=== PATIENT | male | born 1965 | race Caucasian/White ===

== ENCOUNTER 2016-08-15 18:45 | Inpatient (IN) | payer SELFPAY ==
[2016-08-15] MEDS ORDERED: NORMAL SALINE 1000 ML 1,000 ML IV ONE ×2 (21:14→22:00)
[2016-08-15 21:55] LABS: HEMOGLOBIN 16.2 g/dL (13.5-17.0); HGB HCT DIFFERENCE -3.4; MEAN CORPUSCULAR HEMOGLOBIN 32.3 pg (27.0-33.4); MEAN CORPUSCULAR HGB CONC 31.1 g/dL (32.0-36.0); MEAN CORPUSCULAR VOLUME 104 fl (80-97); RED BLOOD COUNT 5.02 10^6/uL (4.35-5.55); RED CELL DISTRIBUTION WIDTH 13.3 % (11.5-14.0)
[2016-08-15 22:19] LABS: BAND NEUTROPHILS % (MANUAL) 3 % (3-5); BASOPHILS % (MANUAL) 0 % (0-2); EOSINOPHILS % (MANUAL) 0 % (0-6); LYMPHOCYTES % (MANUAL) 1 % (13-45); TOTAL CELLS COUNTED 100
[2016-08-15 22:21] LABS: PLATELET CLUMPS PRESENT; TOXIC GRANULATION SLIGHT; TOXIC VACUOLATION PRESENT
[2016-08-15 22:24] LABS: WHITE BLOOD COUNT 34.6 10^3/uL (4.0-10.5)
--- NOTE | 2016-08-15 22:42 | ER Document Report ---
ED General - General Chief Complaint: Breathing Difficulty Stated Complaint: DIFFICULTY BREATHING Mode of Arrival: Ambulatory Information source: Patient Notes: 51-year-old male with history of insulin-dependent type II diabetes presents to the emergency department complaining of shortness of breath, nausea and vomiting. Reports has been out of his insulin for a week and feels like his blood sugar is very high. States has not checked it at home. Reports recently moved to local area 3 weeks ago and has not established care with a new primary care provider. Denies fever, chest pain, blood in emesis or stool. TRAVEL OUTSIDE OF THE [place] IN LAST 30 DAYS: No - HPI Onset/Duration: Persistent, Worse Associated symptoms: Nausea, Vomiting, Shortness of breath Similar symptoms previously: Yes Recently seen / treated by doctor: No - Related Data Allergies/Adverse Reactions: No Known Allergies Allergy (Verified 08/15/16 18:47) Past Medical History - General Information source: Patient - Social History Smoking Status: Never Smoker Frequency of alcohol use: None Drug Abuse: None Lives with: Family Family History: Reviewed & Not Pertinent Patient has suicidal ideation: No Patient has homicidal ideation: No - Past Medical History Cardiac Medical History: Reports: Hx Hypertension Endocrine Medical History: Reports: Hx Diabetes Mellitus Type 2 Renal/ Medical History: Denies: Hx Peritoneal Dialysis Surgical Hx: Negative - Immunizations Hx Diphtheria, Pertussis, Tetanus Vaccination: Yes Review of Systems - Review of Systems Constitutional: See HPI, Weakness EENT: No symptoms reported Cardiovascular: No symptoms reported Respiratory: See HPI Gastrointestinal: See HPI Genitourinary: No symptoms reported Male Genitourinary: No symptoms reported Musculoskeletal: No symptoms reported Skin: No symptoms reported Hematologic/Lymphatic: No symptoms reported Neurological/Psychological: No symptoms reported -: Yes All other systems reviewed and negative Physical Exam - Vital signs Vitals: Pulse Resp BP Pulse Ox 103 H 20 120/72 100 08/15/16 18:49 08/15/16 18:49 08/15/16 18:49 08/15/16 18:49 - General General appearance: Alert, Anxious In distress: Mild - HEENT Head: Normocephalic, Atraumatic Eyes: Normal Pupils: PERRL Mucous membranes: Dry - Respiratory Respiratory status: No respiratory distress, Tachypnea Chest status: Nontender Breath sounds: Normal - CTAB Chest palpation: Normal - Cardiovascular Rhythm: Regular Heart sounds: Normal auscultation Murmur: No Pulses: Normal: Radial Normal capillary refill: Yes - Abdominal Inspection: Normal Distension: No distension Bowel sounds: Normal Tenderness: Nontender Organomegaly: No organomegaly - Back Back: Normal, Nontender - Extremities General upper extremity: Normal inspection, Nontender, Normal color, Normal ROM , Normal strength, Normal temperature. No: Edema General lower extremity: Normal inspection, Nontender, Normal color, Normal ROM , Normal strength, Normal temperature, Normal weight bearing. No: Edema - Neurological Neuro grossly intact: Yes Cognition: Normal Orientation: AAOx4 [place] Coma Scale Eye Opening: Spontaneous Ayana Coma Scale Verbal: Oriented [place] Coma Scale Motor: Obeys Commands Ayana Coma Scale Total: 15 Speech: Normal Motor strength normal: LUE, RUE, LLE, RLE Sensory: Normal - Skin Skin Temperature: Warm Skin Moisture: Dry Skin Color: Hazel Course - Re-evaluation Re-evalutation: 08/15/16 23:45 Pt receiving 2 L NS bolus, IV insulin, calcium gluconate, and nebulized albuterol. Pt presentation and findings discussed with hospitalist Dr. Marti who agrees to assume care and admit to ICU. Findings and plan discussed with patient and who verbalized understanding and agree with plan. ED physician Dr. Olea consulted during evaluation and treatment per [facility] guidelines. - Vital Signs Vital signs: Temp Pulse Resp BP Pulse Ox 103 H 26 H 138/84 H 94 08/15/16 18:49 08/15/16 21:43 08/15/16 21:43 08/15/16 21:35 - Laboratory Result Diagrams: 08/15/16 21:29 08/15/16 22:23 Laboratory results interpreted by me: 08/15/16 08/15/16 08/15/16 21:29 22:23 23:05 WBC 34.6 H* Hct 52.0 H MCV 104 H MCHC 31.1 L Plt Count 461 H Seg Neuts % (Manual) 92 H Lymphocytes % (Manual) 1 L Abs Neuts (Manual) 32.9 H Abs Lymphs (Manual) 0.3 L Carbonic Acid ABG pH ABG pCO2 ABG HCO3 ABG Total CO2 ABG O2 Saturation Sodium 130.2 L Potassium 7.9 H* Chloride 90 L Carbon Dioxide < 5 L* BUN 26 H Creatinine 2.07 H Est GFR ( Amer) 41 L Est GFR (Non-Af Amer) 34 L Glucose 881 H* Alkaline Phosphatase 139 H Urine Protein 30 H Urine Glucose (UA) >=500 H Urine Ketones 80 H Urine Blood SMALL H 08/15/16 23:54 WBC Hct MCV MCHC Plt Count Seg Neuts % (Manual) Lymphocytes % (Manual) Abs Neuts (Manual) Abs Lymphs (Manual) Carbonic Acid 0.43 L ABG pH 6.88 L* ABG pCO2 14.3 L* ABG HCO3 2.6 L ABG Total CO2 3.1 L ABG O2 Saturation 89.2 L Sodium Potassium Chloride Carbon Dioxide BUN Creatinine Est GFR ( Amer) Est GFR (Non-Af Amer) Glucose Alkaline Phosphatase Urine Protein Urine Glucose (UA) Urine Ketones Urine Blood - Diagnostic Test Radiology reviewed: Image reviewed, Reports reviewed - EKG Interpretation by Me EKG shows normal: Sinus rhythm, Intervals, QRS Complexes, ST-T Waves - peaked T waves Rate: Tachycardia When compared to previous EKG there are: Previous EKG unavailable Critical Care Note - Critical Care Note Total time excluding time spent on procedures (mins): 30 Discharge - Discharge Clinical Impression: Hyperglycemia DKA (diabetic ketoacidosis) Qualifiers: Diabetes mellitus type: type 2 Diabetes mellitus complication detail: without coma Qualified Code(s): E13.10 - Other specified diabetes mellitus with ketoacidosis without coma Condition: Stable Disposition: ADMITTED INPATIENT Admitting Provider: Hospitalist - Dr. Marti Unit Admitted: ICU
[2016-08-15 22:51] LABS: ALANINE AMINOTRANSFERASE 21 U/L (21-72); ALBUMIN 4.7 g/dL (3.5-5.0); ALKALINE PHOSPHATASE 139 U/L (38-126); ASPARTATE AMINO TRANSFERASE 17 U/L (17-59); BILIRUBIN,DIRECT 0.3 mg/dL (0.0-0.4); BILIRUBIN,TOTAL 0.5 mg/dL (0.2-1.3); BLOOD UREA NITROGEN 26 mg/dL (7-20); CALCIUM 9.5 mg/dL (8.4-10.2); CREATININE RESULT 2.07 mg/dL (0.52-1.25); TOTAL PROTEIN 7.1 g/dL (6.3-8.2)
[2016-08-15 23:24] LABS: CHLORIDE 90 mmol/L (98-107); SODIUM 130.2 mmol/L (137-145)
[2016-08-15 23:26] LABS: GLUCOSE 881 mg/dL (75-110); POTASSIUM 7.9 mmol/L (3.6-5.0)
[2016-08-15 23:28] LABS: CARBON DIOXIDE < 5 mmol/L (22-30)
[2016-08-15] MEDS ORDERED: INSULIN REG, HUMAN 100 UNIT/ML 3 ML VIAL (PYX) IV ONE (23:30)
[2016-08-15] MEDS ORDERED: CALCIUM GLUCONATE 1000 MG/10 ML INJ IV ONE (23:30)
[2016-08-15] MEDS ORDERED: ALBUTEROL SULFATE 0.083% NEB 2.5 MG/3 ML AMPUL NEB ONE (23:31)
[2016-08-15 23:32] LABS: APPEARANCE,URINE SLIGHTLY-CLOUDY; BILIRUBIN,URINE NEGATIVE (NEGATIVE); GLUCOSE, URINE >=500 mg/dL (NEGATIVE); KETONES,URINE 80 mg/dL (NEGATIVE); LEUKOCYTE ESTERASE,URINE NEGATIVE (NEGATIVE); NITRITE,URINE NEGATIVE (NEGATIVE); PROTEIN,URINE 30 mg/dL (NEGATIVE); URINE SPECIFIC GRAVITY 1.016; UROBILINOGEN,URINE NEGATIVE mg/dL (<2.0)
[2016-08-15] MEDS ORDERED: DEXTROSE 40% GEL 15 GM TUBE PO PRN ×4 (23:32→23:47)
[2016-08-15] MEDS ORDERED: NORMAL SALINE 100 ML with INSULIN REGULAR, HUMAN 100 UNIT IV PRN ×2 (23:32)
[2016-08-15] MEDS ORDERED: GLUCAGON,HUMAN RECOMB 1 MG INJ IM PRN ×2 (23:32→23:47)
[2016-08-15] MEDS ORDERED: DEXTROSE 50%-WATER 25 GM/50 ML DISP.SYRIN IV PRN ×4 (23:32→23:47)
[2016-08-15] MEDS ORDERED: ACETAMINOPHEN 325 MG TABLET PO PRN (23:47)
[2016-08-16 00:05] LABS: ARTERIAL BLOOD BASE EXCESS -29.4 mmol/L; ARTERIAL BLOOD O2 SATURATION 89.2 % (94-98)
--- NOTE | 2016-08-16 00:10 | EKG REPORT ---
SEVERITY:- OTHERWISE NORMAL ECG - SINUS TACHYCARDIA : Confirmed by: Jane Redmond 16-Aug-2016 00:09:38
[2016-08-16 00:23] LABS: PHOSPHORUS 12.9 mg/dL (2.5-4.5)
[2016-08-16 01:05] LABS: BLOOD UREA NITROGEN 27 mg/dL (7-20); CALCIUM 9.1 mg/dL (8.4-10.2); CHLORIDE 95 mmol/L (98-107); CREATINE KINASE 46 U/L (55-170); CREATININE RESULT 1.91 mg/dL (0.52-1.25); SODIUM 135.4 mmol/L (137-145)
[2016-08-16 01:14] LABS: URINE BARBITURATES SCREEN NEGATIVE; URINE METHADONE SCREEN NEGATIVE; URINE OPIATES LOW NEGATIVE; URINE PHENCYCLIDINE SCREEN NEGATIVE
[2016-08-16 01:32] LABS: CREATINE KINASE MB 0.67 ng/mL (<4.55)
[2016-08-16 01:34] LABS: TROPONIN I < 0.012 ng/mL
[2016-08-16 01:47] LABS: CARBON DIOXIDE < 5 mmol/L (22-30); GLUCOSE 839 mg/dL (75-110)
[2016-08-16] MEDS: IPRATROPIUM/ALBUTEROL 0.5-2.5 MG/3 ML AMPUL NEB SCH ×4 (01:49→19:55)
[2016-08-16] MEDS ORDERED: DEXTROSE 5%-WATER 1000 ML 1,000 ML with SODIUM BICARBONATE 150 MEQ IV ONE ×2 (03:49)
[2016-08-16] MEDS ORDERED: SODIUM BICARBONATE 8.4% INJ 50 MEQ/50 ML DISP.SYRIN ONE (04:05)
[2016-08-16] MEDS: NORMAL SALINE 1000 ML 1,000 ML IV SCH ×2 (04:23→04:24)
--- NOTE | 2016-08-16 04:56 | PDOC H&P ---
History of Present Illness Admission Date/PCP: 08/15/16 23:47 Patient complains of: Abdominal pain nausea vomiting History of Present Illness: ANASTASIIA SAMANO is a 51 year old male with a past medical history of insulin- dependent diabetes who is recently relocated from [place] and been without insulin for 2 weeks. He is noted excessive thirst polyuria polydipsia uncontrolled blood sugars developing abdominal pain nausea vomiting prompting to seek evaluation emergency room where his found to have severe metabolic acidosis of 6.8, undetectable bicarbonate in a potassium of 8 with peaked T waves. He started on IV insulin, saline, calcium gluconate and symptomatic measures referred to the hospitalist for admission. Incredibly the patient is still awake denying chest pain or palpitations. Past Medical History Cardiac Medical History: Reports: Hypertension Endocrine Medical History: Reports: Diabetes Mellitus Type 2 Social History Information Source: Relative Lives with: Family Smoking Status: Former Smoker Frequency of Alcohol Use: Social Hx Recreational Drug Use: No Drugs: None Hx Prescription Drug Abuse: No - Advance Directive Resuscitation Status: Full Code Family History Family History: None Parental Family History Reviewed: Yes Children Family History Reviewed: Yes Sibling(s) Family History Reviewed.: Yes Medication/Allergy Allergies/Adverse Reactions: No Known Allergies Allergy (Verified 08/15/16 18:47) Review of Systems Constitutional: PRESENT: anorexia, fatigue, headache(s), weakness, weight loss. ABSENT: fever(s), night sweats Eyes: ABSENT: visual disturbances Ears: ABSENT: hearing changes Cardiovascular: ABSENT: chest pain, dyspnea on exertion, edema, orthropnea, palpitations Respiratory: PRESENT: other - Tachypnea. ABSENT: cough, hemoptysis Gastrointestinal: PRESENT: abdominal pain, nausea, vomiting Genitourinary: ABSENT: dysuria, hematuria Musculoskeletal: ABSENT: joint swelling Integumentary: ABSENT: rash, wounds Neurological: ABSENT: abnormal gait, abnormal speech, confusion, dizziness, focal weakness, syncope Psychiatric: ABSENT: anxiety, depression, homidical ideation, suicidal ideation Endocrine: PRESENT: polydipsia, polyphagia, polyuria Hematologic/Lymphatic: ABSENT: easy bleeding, easy bruising Physical Exam Vital Signs: Temp Pulse Resp BP Pulse Ox 97.7 F 114 H 25 H 127/77 H 100 08/16/16 04:24 08/16/16 04:00 08/16/16 04:24 08/16/16 04:24 08/16/16 04:00 Intake & Output 08/14/16 08/15/16 08/16/16 11:59 11:59 11:59 Output Total 1000 Balance -1000 Weight 56.7 kg General appearance: PRESENT: cooperative, severe distress Head exam: PRESENT: atraumatic, normocephalic Eye exam: PRESENT: conjunctiva pink, EOMI, PERRLA. ABSENT: scleral icterus Ear exam: PRESENT: normal external ear exam Mouth exam: PRESENT: dry mucosa. ABSENT: laceration Neck exam: ABSENT: carotid bruit, JVD, lymphadenopathy, thyromegaly Respiratory exam: PRESENT: accessory muscle use, clear to auscultation rea, retraction, symmetrical, tachypnea. ABSENT: rhonchi, wheezes Cardiovascular exam: PRESENT: gallop, RRR, +S1, +S2, tachycardia. ABSENT: systolic murmur Pulses: PRESENT: normal dorsalis pedis pul Vascular exam: PRESENT: normal capillary refill GI/Abdominal exam: PRESENT: normal bowel sounds, soft, tenderness. ABSENT: distended, guarding, mass, organolmegaly, rebound Rectal exam: PRESENT: deferred Extremities exam: PRESENT: full ROM, other - Livedo reticularis. ABSENT: calf tenderness, clubbing, pedal edema Neurological exam: PRESENT: alert, awake, oriented to person, oriented to place , oriented to time, oriented to situation, CN II-XII grossly intact. ABSENT: motor sensory deficit Psychiatric exam: PRESENT: appropriate affect, normal mood. ABSENT: homicidal ideation, suicidal ideation Skin exam: PRESENT: other - [place]ivedo reticularis Results Laboratory Results: 08/15/16 08/16/16 08/16/16 23:54 00:13 02:04 Carbonic Acid 0.43 L HCO3/H2CO3 Ratio 6:1 ABG pH 6.88 L* ABG pCO2 14.3 L* ABG pO2 90.6 ABG HCO3 2.6 L ABG O2 Saturation 89.2 L ABG Base Excess -29.4 FiO2 ROOMAIR Sodium 135.4 L Potassium 7.0 H* Chloride 95 L Carbon Dioxide < 5 L* Anion Gap CERTIFIED MEDICAL DOSIMETRIST BUN 27 H Creatinine 1.91 H Est GFR ( Amer) 45 L Est GFR (Non-Af Amer) 37 L Glucose 839 H* 762 H* Calcium 9.1 08/16/16 08/16/16 00:13 00:13 Creatine Kinase 46 L CK-MB (CK-2) 0.67 Troponin I < 0.012 Impressions: Chest X-Ray 08/15/16 21:16 IMPRESSION: NO ACUTE RADIOGRAPHIC FINDING IN THE CHEST. Assessment & Plan - Diagnosis (1) DKA (diabetic ketoacidosis) Qualifiers: Diabetes mellitus type: type 2 Diabetes mellitus complication detail: without coma Qualified Code(s): E13.10 - Other specified diabetes mellitus with ketoacidosis without coma Is this a current diagnosis for this admission?: YesPlan: Patient admits recent noncompliance given his severe acidosis with a pH of 6.8 a he is transferred to the ICU for aggressive IV insulin, saline, bicarbonate and electrolyte repletion with serial chemistries as needed, diabetic education (2) Hyperkalemia Is this a current diagnosis for this admission?: YesPlan: Patient is received calcium gluconate, albuterol Atrovent, insulin IV fluid I' ll reevaluate chemistry in anticipation of a precipitous drop of potassium with correction of acidosis (3) Nausea & vomiting Is this a current diagnosis for this admission?: YesPlan: Correcting the underlying cause and symptomatic management as needed - Time Time Spent: 50 to 70 Minutes - Inpatient Certification Medical Necessity: Need Close Monitoring Due to Risk of Patient Decompensation
[2016-08-16 05:09] LABS: BLOOD UREA NITROGEN 29 mg/dL (7-20); CALCIUM 8.9 mg/dL (8.4-10.2); CREATININE RESULT 1.91 mg/dL (0.52-1.25); MAGNESIUM 2.5 mg/dL (1.6-2.3)
[2016-08-16 05:23] LABS: CHLORIDE 107 mmol/L (98-107); SODIUM 146.1 mmol/L (137-145)
[2016-08-16 05:24] LABS: POTASSIUM 5.3 mmol/L (3.6-5.0)
[2016-08-16 05:25] LABS: CARBON DIOXIDE < 5 mmol/L (22-30); GLUCOSE 597 mg/dL (75-110)
[2016-08-16] MEDS: HEPARIN SOD (PORCINE) 5,000 UNIT/ML 1 ML SYRINGE SUBCUT SCH ×3 (05:33→22:03)
[2016-08-16 06:14] LABS: ARTERIAL BLOOD BASE EXCESS -20.6 mmol/L; ARTERIAL BLOOD O2 SATURATION 95.3 % (94-98)
[2016-08-16] MEDS ORDERED: NORMAL SALINE 1000 ML 1,000 ML IV PRN (07:18)
[2016-08-16 07:19] LABS: CREATINE KINASE MB 1.42 ng/mL (<4.55)
[2016-08-16 07:26] LABS: TROPONIN I < 0.012 ng/mL
[2016-08-16 08:05] LABS: HEMATOCRIT 42.8 % (37.9-51.0); HEMOGLOBIN 14.5 g/dL (13.5-17.0); HGB HCT DIFFERENCE 0.7; MEAN CORPUSCULAR HEMOGLOBIN 32.3 pg (27.0-33.4)
[2016-08-16] MEDS ORDERED: ALBUTEROL SULFATE 0.083% NEB 2.5 MG/3 ML AMPUL NEB PRN (08:21)
[2016-08-16 08:23] LABS: BAND NEUTROPHILS % (MANUAL) 2 % (3-5); BASOPHILS % (MANUAL) 0 % (0-2); EOSINOPHILS % (MANUAL) 0 % (0-6); LYMPHOCYTES % (MANUAL) 1 % (13-45); TOTAL CELLS COUNTED 100
[2016-08-16 08:25] LABS: HYPOCHROMASIA SLIGHT
[2016-08-16 08:26] LABS: MEAN CORPUSCULAR VOLUME 95 fl (80-97)
[2016-08-16] MEDS ORDERED: NORMAL SALINE 1000 ML 2,000 ML IV ONE (08:26)
[2016-08-16 08:27] LABS: WHITE BLOOD COUNT 32.9 10^3/uL (4.0-10.5)
[2016-08-16 08:36] LABS: BLOOD UREA NITROGEN 27 mg/dL (7-20); CALCIUM 8.9 mg/dL (8.4-10.2); CHLORIDE 109 mmol/L (98-107); CREATININE RESULT 1.52 mg/dL (0.52-1.25); GLUCOSE 380 mg/dL (75-110); POTASSIUM 4.8 mmol/L (3.6-5.0)
[2016-08-16 08:49] LABS: SODIUM 143.8 mmol/L (137-145)
[2016-08-16 08:53] LABS: ANION GAP 28 (5-19)
[2016-08-16 08:56] LABS: CARBON DIOXIDE 7 mmol/L (22-30)
[2016-08-16] MEDS ORDERED: PANTOPRAZOLE SODIUM 40 MG VIAL IV ONE (09:00)
[2016-08-16] MEDS ORDERED: SODIUM CHLORIDE 3% FOR INHALATION 15 ML AMPUL NEB ONE (09:45)
[2016-08-16] MEDS: NORMAL SALINE 100 ML with INSULIN REGULAR, HUMAN 100 UNIT IV PRN ×4 (09:56→17:47)
[2016-08-16] MEDS: GUAIFENESIN 600 MG TABLET.SA PO SCH ×2 (09:57→22:03)
[2016-08-16] MEDS ORDERED: LEVOFLOXACIN 750 MG/D5W RTU 750 MG/150 ML RTUPB IV SCH (10:00)
[2016-08-16 10:34] LABS: APPEARANCE,URINE SLIGHTLY-CLOUDY; BILIRUBIN,URINE NEGATIVE (NEGATIVE); GLUCOSE, URINE >=500 mg/dL (NEGATIVE); KETONES,URINE 80 mg/dL (NEGATIVE); LEUKOCYTE ESTERASE,URINE NEGATIVE (NEGATIVE); NITRITE,URINE NEGATIVE (NEGATIVE); PROTEIN,URINE 30 mg/dL (NEGATIVE); URINE SPECIFIC GRAVITY 1.011; UROBILINOGEN,URINE NEGATIVE mg/dL (<2.0)
[2016-08-16] MEDS ORDERED: DEXTROSE 5%-WATER 1000 ML 1,000 ML with SODIUM BICARBONATE 150 MEQ IV PRN ×4 (11:23→14:51)
[2016-08-16] MEDS: CEFTRIAXONE 1 GM/D5W RTU 50 ML IV SCH (12:04)
[2016-08-16] MEDS ORDERED: POTASSI CL 20 MEQ/D5-1/2NS 1L 1,000 ML IV ONE (12:20)
[2016-08-16] MEDS ORDERED: POTASSI CL 20 MEQ/D5-1/2NS 1L 1000 ML IV PRN (12:23)
[2016-08-16] MEDS: POTASSI CL 20 MEQ/D5-1/2NS 1L 1,000 ML IV PRN ×2 (13:11→17:47)
[2016-08-16 14:07] LABS: ANION GAP 17 (5-19); BLOOD UREA NITROGEN 22 mg/dL (7-20); CALCIUM 8.5 mg/dL (8.4-10.2); CHLORIDE 109 mmol/L (98-107); CREATINE KINASE 48 U/L (55-170); CREATINE KINASE MB 2.02 ng/mL (<4.55); CREATININE RESULT 1.01 mg/dL (0.52-1.25); GLUCOSE 232 mg/dL (75-110); SODIUM 143.3 mmol/L (137-145)
[2016-08-16 14:11] LABS: TROPONIN I < 0.012 ng/mL
[2016-08-16 14:21] LABS: CARBON DIOXIDE 17 mmol/L (22-30); POTASSIUM 3.5 mmol/L (3.6-5.0)
[2016-08-16] MEDS ORDERED: POTASSIUM CHLORIDE 10 MEQ TABLET.SA PO ONE ×4 (14:44→19:00)
--- NOTE | 2016-08-16 14:51 | PDOC PROGRESS REPORT ---
Subjective Progress Note for:: 08/16/16 Subjective:: Patient reports he's feeling improved. He does have a cough. It is unproductive. Patient denies chest pain, shortness of breath, abdominal pain, nausea, vomiting , fevers, chills, diarrhea, constipation, headache, new onset weakness. Physical Exam Vital Signs: Temp Pulse Resp BP Pulse Ox 99.0 F 110 H 24 H 131/87 H 100 08/16/16 07:56 08/16/16 07:56 08/16/16 07:56 08/16/16 07:56 08/16/16 07:56 Intake & Output 08/15/16 08/16/16 08/17/16 06:59 06:59 06:59 Intake Total 2987 450 Output Total 1450 Balance 1537 450 Weight 56.7 kg Exam: General: Awake alert and oriented x3, no acute respiratory distress, acutely ill -appearing HEENT: AT/NC, PERRL, EOMI, oropharynx is moist, pink, no scleral icterus, no conjunctival injection Neck: No JVD, trachea midline Chest: Rhonchi right lower lobe CV: Tachycardic, Regular rate and rhythm, normal S1 and S2, no murmur, rub, or gallop Abdomen: Soft, nontender to palpation, nondistended, active bowel sounds; no rebound, rigidity, or guarding Extremities: No cyanosis, clubbing or edema Neuro: Cranial nerves II through XII are grossly intact without focal deficits; awake alert and oriented x3 Psych: Normal mood and affect Results Laboratory Results: 08/15/16 08/16/16 08/16/16 23:54 00:13 02:04 WBC RBC Hgb Hct MCV MCH MCHC RDW Plt Count Seg Neutrophils % Lymphocytes % Monocytes % Eosinophils % Basophils % Absolute Neutrophils Absolute Lymphocytes Absolute Monocytes Absolute Eosinophils Absolute Basophils Carbonic Acid 0.43 L HCO3/H2CO3 Ratio 6:1 ABG pH 6.88 L* ABG pCO2 14.3 L* ABG pO2 90.6 ABG HCO3 2.6 L ABG O2 Saturation 89.2 L ABG Base Excess -29.4 FiO2 ROOMAIR Sodium 135.4 L Potassium 7.0 H* Chloride 95 L Carbon Dioxide < 5 L* Anion Gap [employer] BUN 27 H Creatinine 1.91 H Est GFR ( Amer) 45 L Est GFR (Non-Af Amer) 37 L Glucose 839 H* 762 H* Calcium 9.1 Magnesium 08/16/16 08/16/16 08/16/16 04:28 06:05 06:45 WBC Cancelled RBC Cancelled Hgb Cancelled Hct Cancelled MCV Cancelled MCH Cancelled MCHC Cancelled RDW Cancelled Plt Count Cancelled Seg Neutrophils % Cancelled Lymphocytes % Cancelled Monocytes % Cancelled Eosinophils % Cancelled Basophils % Cancelled Absolute Neutrophils Cancelled Absolute Lymphocytes Cancelled Absolute Monocytes Cancelled Absolute Eosinophils Cancelled Absolute Basophils Cancelled Carbonic Acid 0.45 L HCO3/H2CO3 Ratio 12:1 ABG pH 7.18 L* ABG pCO2 14.8 L* ABG pO2 91.7 ABG HCO3 5.4 L ABG O2 Saturation 95.3 ABG Base Excess -20.6 FiO2 2L Sodium 146.1 H Potassium 5.3 H D Chloride 107 Carbon Dioxide < 5 L* Anion Gap [employer] BUN 29 H Creatinine 1.91 H Est GFR ( Amer) 45 L Est GFR (Non-Af Amer) 37 L Glucose 597 H* Calcium 8.9 Magnesium 2.5 H 08/16/16 07:57 WBC RBC Hgb Hct MCV MCH MCHC RDW Plt Count Seg Neutrophils % Not Reportable Lymphocytes % Not Reportable Monocytes % Not Reportable Eosinophils % Not Reportable Basophils % Not Reportable Absolute Neutrophils Not Reportable Absolute Lymphocytes Not Reportable Absolute Monocytes Not Reportable Absolute Eosinophils Not Reportable Absolute Basophils Not Reportable Carbonic Acid HCO3/H2CO3 Ratio ABG pH ABG pCO2 ABG pO2 ABG HCO3 ABG O2 Saturation ABG Base Excess FiO2 Sodium Potassium Chloride Carbon Dioxide Anion Gap BUN Creatinine Est GFR ( Amer) Est GFR (Non-Af Amer) Glucose Calcium Magnesium 08/16/16 08/16/16 08/16/16 00:13 00:13 06:45 Creatine Kinase 46 L 51 L CK-MB (CK-2) 0.67 Troponin I < 0.012 08/16/16 06:45 Creatine Kinase CK-MB (CK-2) 1.42 Troponin I < 0.012 Impressions: Chest X-Ray 08/15/16 21:16 IMPRESSION: NO ACUTE RADIOGRAPHIC FINDING IN THE CHEST. Assessment & Plan - Diagnosis (1) DKA (diabetic ketoacidosis) Qualifiers: Diabetes mellitus type: type 2 Diabetes mellitus complication detail: without coma Qualified Code(s): E13.10 - Other specified diabetes mellitus with ketoacidosis without coma Is this a current diagnosis for this admission?: YesPlan: Patient with very serious DKA. Continue bicarbonate drip and insulin drip per protocol. Continue monitor every 4 hour BMPs. Very concerned for electrolyte disturbances as patient did present with potassium of 7.9 and a pH of 6.8. (2) Right lower lobe pneumonia Qualifiers: Pneumonia type: aspiration pneumonia Aspiration pneumonia type: due to vomit Qualified Code(s): J69.0 - Pneumonitis due to inhalation of food and vomit Is this a current diagnosis for this admission?: YesPlan: Patient with right lower lobe pneumonia possibly secondary to his recent episodes of nausea vomiting. Will initiate patient on Rocephin and Levaquin. Scheduled nebulized treatments. (3) Sepsis Qualifiers: Sepsis type: sepsis due to unspecified organism Qualified Code(s): A41.9 - Sepsis, unspecified organism Is this a current diagnosis for this admission?: YesPlan: Obtain blood cultures, urine culture, and sputum culture. Maintain map of 65. Treatment for underlying pneumonia. (4) Noncompliance Is this a current diagnosis for this admission?: Yes - Time Critical Time spent with patient: 35 or more minutes Medications reviewed and adjusted accordingly: Yes
[2016-08-16] MEDS: LANSOPRAZOLE 15 MG TAB.RAP.DR PO SCH (16:18)
[2016-08-16 17:39] LABS: ANION GAP 11 (5-19); BLOOD UREA NITROGEN 19 mg/dL (7-20); CALCIUM 7.6 mg/dL (8.4-10.2); CARBON DIOXIDE 21 mmol/L (22-30); CHLORIDE 107 mmol/L (98-107); CREATININE RESULT 0.81 mg/dL (0.52-1.25); GLUCOSE 185 mg/dL (75-110); POTASSIUM 3.5 mmol/L (3.6-5.0); SODIUM 139.1 mmol/L (137-145)
[2016-08-16] MEDS ORDERED: INSULIN GLARGINE,HUM.REC.ANLOG 1,000 UNIT/10 ML UNIT SUBCUT ONE ×2 (18:04→18:45)
[2016-08-16] MEDS ORDERED: NORMAL SALINE 100 ML with INSULIN REGULAR, HUMAN 100 UNIT IV PRN ×2 (19:05)
[2016-08-16] MEDS ORDERED: POTASSI CL 20 MEQ/D5-1/2NS 1L 1,000 ML IV PRN (19:06)
--- NOTE | 2016-08-16 21:11 | EKG REPORT ---
SEVERITY:- OTHERWISE NORMAL ECG - SINUS TACHYCARDIA : Confirmed by: Мария Robles MD 16-Aug-2016 21:10:29
[2016-08-16 21:32] LABS: ANION GAP 10 (5-19); BLOOD UREA NITROGEN 15 mg/dL (7-20); CALCIUM 8.3 mg/dL (8.4-10.2); CARBON DIOXIDE 20 mmol/L (22-30); CHLORIDE 109 mmol/L (98-107); CREATININE RESULT 0.82 mg/dL (0.52-1.25); GLUCOSE 202 mg/dL (75-110); POTASSIUM 3.5 mmol/L (3.6-5.0); SODIUM 139.1 mmol/L (137-145)
[2016-08-16] MEDS: INSULIN LISPRO 100 UNIT/ML 3 ML VIAL SUBCUT PRN (22:17)
[2016-08-17] MEDS: NORMAL SALINE 1000 ML 1,000 ML IV PRN ×3 (00:46→21:04)
[2016-08-17 02:02] LABS: ANION GAP 7 (5-19); BLOOD UREA NITROGEN 12 mg/dL (7-20); CARBON DIOXIDE 20 mmol/L (22-30); CHLORIDE 113 mmol/L (98-107); CREATININE RESULT 0.72 mg/dL (0.52-1.25); GLUCOSE 174 mg/dL (75-110); POTASSIUM 4.3 mmol/L (3.6-5.0); SODIUM 139.5 mmol/L (137-145)
[2016-08-17] MEDS: IPRATROPIUM/ALBUTEROL 0.5-2.5 MG/3 ML AMPUL NEB SCH ×4 (02:21→21:08)
[2016-08-17 05:09] LABS: ABSOLUTE BASOPHILS # (AUTO) 0.1 10^3/uL (0.0-0.2); ABSOLUTE EOSINOPHILS # (AUTO) 0.1 10^3/uL (0.0-0.6); ABSOLUTE MONOCYTES (AUTO) 0.9 10^3/uL (0.1-1.4); ABSOLUTE NEUT (AUTO) 15.4 10^3/uL (1.7-8.2); BASOPHILS % (AUTO) 0.5 % (0-2); EOSINOPHILS % (AUTO) 0.5 % (0-6); HEMATOCRIT 36.8 % (37.9-51.0); HEMOGLOBIN 13.2 g/dL (13.5-17.0); HGB HCT DIFFERENCE 2.8; LYMPHOCYTES % (AUTO) 10.7 % (13-45); MEAN CORPUSCULAR HGB CONC 35.9 g/dL (32.0-36.0); MEAN CORPUSCULAR VOLUME 92 fl (80-97); MONOCYTES % (AUTO) 5.1 % (3-13); RED BLOOD COUNT 4.01 10^6/uL (4.35-5.55); RED CELL DISTRIBUTION WIDTH 13.6 % (11.5-14.0); SEGMENTED NEUTROPHILS % (AUTO) 83.2 % (42-78); WHITE BLOOD COUNT 18.5 10^3/uL (4.0-10.5)
[2016-08-17 05:20] LABS: ANION GAP 9 (5-19); BLOOD UREA NITROGEN 10 mg/dL (7-20); CALCIUM 8.2 mg/dL (8.4-10.2); CARBON DIOXIDE 22 mmol/L (22-30); CHLORIDE 112 mmol/L (98-107); CREATININE RESULT 0.73 mg/dL (0.52-1.25); GLUCOSE 146 mg/dL (75-110); MAGNESIUM 1.7 mg/dL (1.6-2.3); POTASSIUM 3.7 mmol/L (3.6-5.0); SODIUM 143.1 mmol/L (137-145)
[2016-08-17] MEDS: HEPARIN SOD (PORCINE) 5,000 UNIT/ML 1 ML SYRINGE SUBCUT SCH ×3 (07:22→21:05)
[2016-08-17] MEDS: LANSOPRAZOLE 15 MG TAB.RAP.DR PO SCH ×2 (07:22→17:29)
[2016-08-17] MEDS: MAGNESIUM SULFATE/D5W 100 ML IV SCH ×2 (08:14→09:57)
[2016-08-17] MEDS ORDERED: POTASSIUM CHLORIDE 10 MEQ TABLET.SA PO ONE (08:15)
[2016-08-17] MEDS: CEFTRIAXONE 1 GM/D5W RTU 50 ML IV SCH (09:57)
[2016-08-17] MEDS: GUAIFENESIN 600 MG TABLET.SA PO SCH ×2 (09:58→21:04)
[2016-08-17] MEDS: LISINOPRIL 10 MG TABLET PO SCH (09:58)
[2016-08-17] MEDS: AMLODIPINE BESYLATE 10 MG TABLET PO SCH (09:58)
[2016-08-17] MEDS ORDERED: INSULIN GLARGINE,HUM.REC.ANLOG 300 UNIT/3 ML INSULN.PEN SUBCUT SCH (10:00)
[2016-08-17] MEDS: INSULIN LISPRO 100 UNIT/ML 3 ML VIAL SUBCUT PRN (11:48)
[2016-08-17] MEDS: LEVOFLOXACIN 750 MG TABLET PO SCH (11:48)
[2016-08-17 13:32] LABS: PATH REVIEW PATHOLOGIST REVIEWED
--- NOTE | 2016-08-17 17:57 | PDOC PROGRESS REPORT ---
Subjective Progress Note for:: 08/17/16 Subjective:: Patient denies any new complaints. Patient denies chest pain, shortness of breath, abdominal pain, nausea, vomiting , fevers, chills, diarrhea, constipation, headache, new onset weakness. Physical Exam Vital Signs: Temp Pulse Resp BP Pulse Ox 98.6 F 82 21 H 134/88 H 100 08/17/16 06:00 08/17/16 03:42 08/17/16 06:00 08/17/16 05:42 08/17/16 02:00 Intake & Output 08/16/16 08/17/16 08/18/16 06:59 06:59 06:59 Intake Total 2987 9817 Output Total 1450 2550 Balance 1537 7267 Weight 56.7 kg Exam: General: Awake alert and oriented x3, no acute respiratory distress HEENT: AT/NC, PERRL, EOMI, oropharynx is moist, pink, no scleral icterus, no conjunctival injection Neck: No JVD, trachea midline Chest: Occasional rhonchi right lower lobe CV: Regular rate and rhythm, normal S1 and S2, no murmur, rub, or gallop Abdomen: Soft, nontender to palpation, nondistended, active bowel sounds; no rebound, rigidity, or guarding Extremities: No cyanosis, clubbing or edema Neuro: Cranial nerves II through XII are grossly intact without focal deficits; awake alert and oriented x3 Psych: Normal mood and affect Results Laboratory Results: 08/17/16 05:00 08/17/16 05:00 08/16/16 08/16/16 08/16/16 07:57 07:57 10:00 WBC 32.9 H* RBC 4.50 Hgb 14.5 Hct 42.8 MCV 95 D MCH 32.3 MCHC 34.0 RDW 13.0 Plt Count 338 Seg Neutrophils % Not Reportable Lymphocytes % Not Reportable Monocytes % Not Reportable Eosinophils % Not Reportable Basophils % Not Reportable Absolute Neutrophils Not Reportable Absolute Lymphocytes Not Reportable Absolute Monocytes Not Reportable Absolute Eosinophils Not Reportable Absolute Basophils Not Reportable Sodium 143.8 Potassium 4.8 Chloride 109 H Carbon Dioxide 7 L* Anion Gap 28 H BUN 27 H Creatinine 1.52 H Est GFR ( Amer) 59 L Est GFR (Non-Af Amer) 49 L Glucose 380 H Calcium 8.9 Magnesium Urine Color STRAW Urine Appearance SLIGHTLY-CLOUDY Urine pH 5.0 Ur Specific [place] 1.011 Urine Protein 30 H Urine Glucose (UA) >=500 H Urine Ketones 80 H Urine Blood LARGE H Urine Nitrite NEGATIVE Ur Leukocyte Esterase NEGATIVE Urine WBC (Auto) 4 Urine RBC (Auto) 08/16/16 08/16/16 08/16/16 13:18 17:10 21:07 WBC RBC Hgb Hct MCV MCH MCHC RDW Plt Count Seg Neutrophils % Lymphocytes % Monocytes % Eosinophils % Basophils % Absolute Neutrophils Absolute Lymphocytes Absolute Monocytes Absolute Eosinophils Absolute Basophils Sodium 143.3 139.1 139.1 Potassium 3.5 L D 3.5 L 3.5 L Chloride 109 H 107 109 H Carbon Dioxide 17 L D 21 L 20 L Anion Gap 17 11 10 BUN 22 H 19 15 Creatinine 1.01 0.81 0.82 Est GFR ( Amer) > 60 > 60 > 60 Est GFR (Non-Af Amer) > 60 > 60 > 60 Glucose 232 H 185 H 202 H Calcium 8.5 7.6 L 8.3 L Magnesium Urine Color Urine Appearance Urine pH Ur Specific [place] Urine Protein Urine Glucose (UA) Urine Ketones Urine Blood Urine Nitrite Ur Leukocyte Esterase Urine WBC (Auto) Urine RBC (Auto) 08/17/16 08/17/16 08/17/16 01:34 05:00 05:00 WBC 18.5 H RBC 4.01 L Hgb 13.2 L Hct 36.8 L MCV 92 MCH 33.0 MCHC 35.9 RDW 13.6 Plt Count 153 Seg Neutrophils % 83.2 H Lymphocytes % 10.7 L Monocytes % 5.1 Eosinophils % 0.5 Basophils % 0.5 Absolute Neutrophils 15.4 H Absolute Lymphocytes 2.0 Absolute Monocytes 0.9 Absolute Eosinophils 0.1 Absolute Basophils 0.1 Sodium 139.5 143.1 Potassium 4.3 3.7 Chloride 113 H 112 H Carbon Dioxide 20 L 22 Anion Gap 7 9 BUN 12 10 Creatinine 0.72 0.73 Est GFR ( Amer) > 60 > 60 Est GFR (Non-Af Amer) > 60 > 60 Glucose 174 H 146 H Calcium 8.0 L 8.2 L Magnesium 1.7 Urine Color Urine Appearance Urine pH Ur Specific [place] Urine Protein Urine Glucose (UA) Urine Ketones Urine Blood Urine Nitrite Ur Leukocyte Esterase Urine WBC (Auto) Urine RBC (Auto) 08/16/16 08/16/16 08/16/16 00:13 00:13 06:45 Creatine Kinase 46 L 51 L CK-MB (CK-2) 0.67 Troponin I < 0.012 08/16/16 08/16/16 08/16/16 06:45 13:18 13:18 Creatine Kinase 48 L CK-MB (CK-2) 1.42 2.02 Troponin I < 0.012 < 0.012 Impressions: Chest X-Ray 08/16/16 00:00 IMPRESSION: No acute cardiopulmonary findings. Assessment & Plan - Diagnosis (1) DKA (diabetic ketoacidosis) Qualifiers: Diabetes mellitus type: type 2 Diabetes mellitus complication detail: without coma Qualified Code(s): E13.10 - Other specified diabetes mellitus with ketoacidosis without coma Is this a current diagnosis for this admission?: YesPlan: Patient with very serious DKA. Now resolved. Diabetic educators been consulted. Patient has been educated on the seriousness of taking control of his blood sugar including early heart disease, cerebrovascular disease, loss of limb, and kidney disease. We'll transition patient to 70/30 due to cost. (2) Right lower lobe pneumonia Qualifiers: Pneumonia type: aspiration pneumonia Aspiration pneumonia type: due to vomit Qualified Code(s): J69.0 - Pneumonitis due to inhalation of food and vomit Is this a current diagnosis for this admission?: YesPlan: Patient with right lower lobe pneumonia possibly secondary to his recent episodes of nausea vomiting. Patient on Rocephin and Levaquin. Scheduled nebulized treatments. (3) Sepsis Qualifiers: Sepsis type: sepsis due to unspecified organism Qualified Code(s): A41.9 - Sepsis, unspecified organism Is this a current diagnosis for this admission?: YesPlan: Pending blood cultures, urine culture, and sputum culture. Maintain map of 65. Treatment for underlying pneumonia. (4) Noncompliance Is this a current diagnosis for this admission?: Yes (5) Hypertension Qualifiers: Hypertension type: essential hypertension Qualified Code(s): I10 - Essential (primary) hypertension Is this a current diagnosis for this admission?: YesPlan: Patient on lisinopril now well-controlled. - Time Time Spent with patient: 25-34 minutes Medications reviewed and adjusted accordingly: Yes Anticipated discharge: Home Within: within 48 hours
[2016-08-17] MEDS ORDERED: HUM INSULIN NPH/REG INSULIN HM 100 UNIT/1 ML 3 ML SUBCUT ONE (18:30)
[2016-08-18] MEDS: IPRATROPIUM/ALBUTEROL 0.5-2.5 MG/3 ML AMPUL NEB SCH ×2 (02:20→07:40)
[2016-08-18] MEDS: LANSOPRAZOLE 15 MG TAB.RAP.DR PO SCH (06:07)
[2016-08-18] MEDS: HEPARIN SOD (PORCINE) 5,000 UNIT/ML 1 ML SYRINGE SUBCUT SCH (06:08)
[2016-08-18 06:52] LABS: ABSOLUTE EOSINOPHILS # (AUTO) 0.1 10^3/uL (0.0-0.6); ABSOLUTE LYMPHOCYTES (AUTO) 1.1 10^3/uL (0.5-4.7); ABSOLUTE MONOCYTES (AUTO) 0.4 10^3/uL (0.1-1.4); ABSOLUTE NEUT (AUTO) 4.8 10^3/uL (1.7-8.2); BASOPHILS % (AUTO) 0.6 % (0-2); EOSINOPHILS % (AUTO) 0.9 % (0-6); HEMATOCRIT 35.3 % (37.9-51.0); HEMOGLOBIN 12.5 g/dL (13.5-17.0); HGB HCT DIFFERENCE 2.2; LYMPHOCYTES % (AUTO) 17.5 % (13-45); MEAN CORPUSCULAR HEMOGLOBIN 33.1 pg (27.0-33.4); MEAN CORPUSCULAR HGB CONC 35.4 g/dL (32.0-36.0); MEAN CORPUSCULAR VOLUME 94 fl (80-97); MONOCYTES % (AUTO) 6.2 % (3-13); RED BLOOD COUNT 3.78 10^6/uL (4.35-5.55); RED CELL DISTRIBUTION WIDTH 13.6 % (11.5-14.0); SEGMENTED NEUTROPHILS % (AUTO) 74.8 % (42-78); WHITE BLOOD COUNT 6.4 10^3/uL (4.0-10.5)
[2016-08-18 07:04] LABS: ANION GAP 11 (5-19); BLOOD UREA NITROGEN 5 mg/dL (7-20); CARBON DIOXIDE 23 mmol/L (22-30); CHLORIDE 107 mmol/L (98-107); CREATININE RESULT 0.65 mg/dL (0.52-1.25); GLUCOSE 139 mg/dL (75-110); POTASSIUM 3.9 mmol/L (3.6-5.0); SODIUM 141.1 mmol/L (137-145)
[2016-08-18] MEDS ORDERED: HUM INSULIN NPH/REG INSULIN HM 100 UNIT/1 ML 3 ML SUBCUT SCH (08:00)
--- NOTE | 2016-08-18 09:18 | PDOC DISCHARGE SUMMARY ---
General - Admit/Disc Date/PCP Admission Date/Primary Care Provider: 08/15/16 23:47 Discharge Date: 08/18/16 - Discharge Diagnosis (1) DKA (diabetic ketoacidosis) Is this a current diagnosis for this admission?: Yes (2) Hyperkalemia Is this a current diagnosis for this admission?: Yes (3) Acute renal failure Is this a current diagnosis for this admission?: Yes (4) Sepsis Is this a current diagnosis for this admission?: Yes (5) Right lower lobe pneumonia Is this a current diagnosis for this admission?: Yes (6) Hypertension Is this a current diagnosis for this admission?: Yes - Additional Information Resuscitation Status: Full Code Discharge Diet: Cardiac - low-salt low-fat, , Diabetic - no concentrated sweets Discharge Activity: Activity As Tolerated, Balance Activity w/Rest Home Medications: Amlodipine Besylate [Norvasc 10 mg Tablet] 10 mg PO DAILY 08/16/16 Lisinopril [Prinivil 40 mg Tablet] 40 mg PO DAILY 08/16/16 Metformin HCl [Glucophage] 1,000 mg PO BIDBS 08/16/16 Insulin Glargine,Hum.rec.anlog [Lantus] 25 unit SQ QHS 30 Days 08/18/16 Sulfamethoxazole/Trimethoprim [Bactrim Ds Tablet] 1 each PO BID #14 tablet 08/18 Tramadol HCl [Ultram] 50 mg PO Q8H PRN #30 tablet 08/18/16 Additional Information: Measure blood sugar 3 times a day and record bring to next physician visit. Follow final report on sputum culture as outpatient with primary care physician. History of Present Illness Patient complains of: Nausea and vomiting History of Present Illness: ANASTASIIA SAMANO is a 51 year old male, with history of diabetes taking Lantus recently moved here apparently ran out of medications started to develop nausea and vomiting, presented to the emergency room with elevated WBC and blood sugar , with acidosis. Patient was given intravenous fluids, insulin, and placed on an insulin drip and was referred for admission. For details please refer to history and physical examination performed by the admitting physician. Hospital Course Hospital Course: The patient was admitted to the stepdown unit. The patient was placed on insulin drip, as well as intravenous fluids. Patient with nausea and vomiting, probably develop aspiration and therefore the patient was started on antibiotics and bronchodilators. Eventually the patient's anion gap normalized and the patient's abdominal discomfort resolved as well as the nausea and vomiting. Patient was able to tolerate oral intake, intravenous insulin was discontinued, and patient was placed on subcutaneous insulin. The patient improved. Episodes of hypoglycemia however developed as the patient was being transitioned from Lantus to NPH/7030 insulin. Patient however prefers to go home on Lantus and wished to be discharged and continue treatment at home. Patient reports that he has been used with Lantus for a long time. He was advised to measure his blood sugars 3 times a day and record, bring to next physician visit. He was advised to follow-up sputum culture as outpatient with primary care physician. Physical Exam Vital Signs: Temp Pulse Resp BP Pulse Ox 98.5 F 72 15 148/93 H 97 08/18/16 04:33 08/18/16 07:13 08/18/16 07:13 08/18/16 07:13 08/18/16 07:13 Intake & Output 08/17/16 08/18/16 08/19/16 06:59 06:59 06:59 Intake Total 9817 2529 Output Total 2550 1850 Balance 7267 679 Weight 60 kg General appearance: PRESENT: no acute distress, cooperative Head exam: PRESENT: normocephalic Eye exam: PRESENT: EOMI Mouth exam: PRESENT: moist, neck supple Neck exam: ABSENT: JVD Respiratory exam: PRESENT: clear to auscultation rea. ABSENT: rhonchi, wheezes Cardiovascular exam: PRESENT: RRR. ABSENT: gallop GI/Abdominal exam: PRESENT: soft. ABSENT: distended, tenderness Extremities exam: ABSENT: pedal edema Neurological exam: PRESENT: alert, awake, oriented to person, oriented to place , oriented to time, oriented to situation Skin exam: PRESENT: dry, warm. ABSENT: cyanosis Results Laboratory Results: 08/18/16 06:07 08/18/16 06:07 08/18/16 08/18/16 06:07 06:07 WBC 6.4 RBC 3.78 L Hgb 12.5 L Hct 35.3 L MCV 94 MCH 33.1 MCHC 35.4 RDW 13.6 Plt Count 211 Seg Neutrophils % 74.8 Lymphocytes % 17.5 Monocytes % 6.2 Eosinophils % 0.9 Basophils % 0.6 Absolute Neutrophils 4.8 Absolute Lymphocytes 1.1 Absolute Monocytes 0.4 Absolute Eosinophils 0.1 Absolute Basophils 0.0 Sodium 141.1 Potassium 3.9 Chloride 107 Carbon Dioxide 23 Anion Gap 11 BUN 5 L Creatinine 0.65 Est GFR ( Amer) > 60 Est GFR (Non-Af Amer) > 60 Glucose 139 H Calcium 9.0 08/16/16 10:00 Catheterized Urine Urine Culture - Final NO GROWTH 2 DAYS 08/16/16 09:52 Sputum Gram Stain - Final 08/16/16 08/16/16 08/16/16 00:13 00:13 06:45 Creatine Kinase 46 L 51 L CK-MB (CK-2) 0.67 Troponin I < 0.012 08/16/16 08/16/16 08/16/16 06:45 13:18 13:18 Creatine Kinase 48 L CK-MB (CK-2) 1.42 2.02 Troponin I < 0.012 < 0.012 Impressions: Chest X-Ray 08/17/16 00:00 IMPRESSION: There is blunting of the costophrenic angles posteriorly in the lateral projection suggesting tiny bilateral pleural effusions. Visualized lung rothman are free of active infiltrates. Other findings as noted above Qualifiers PATEINT BEING DISCHARGED WITH ANY OF THE FOLLOWING DIAGNOSIS?: No Plan Discharge Plan: Follow-up with primary care physician in one week. Time Spent: Less than 30 Minutes
[2016-08-18] MEDS: GUAIFENESIN 600 MG TABLET.SA PO SCH (11:14)
[2016-08-18] MEDS: LISINOPRIL 10 MG TABLET PO SCH (11:14)
[2016-08-18] MEDS: AMLODIPINE BESYLATE 10 MG TABLET PO SCH (11:14)
[2016-08-18] MEDS: CEFTRIAXONE 1 GM/D5W RTU 50 ML IV SCH (11:15)
[2016-08-18] MEDS: LEVOFLOXACIN 750 MG TABLET PO SCH (11:22)
[2016-08-18 11:52] VITALS: BP 137/94
[2016-08-18] MEDS: INSULIN LISPRO 100 UNIT/ML 3 ML VIAL SUBCUT PRN (12:09)
== END 2016-08-18 13:10 | disposition home or self-care (01) | DRG 637 ==
LOC: ER 18:45 → EH 23:47 → UNDOADMIN 08-16 00:01 → EH 08-16 00:01 → ICU 08-16 01:14 → EH 08-16 01:14 → 5 08-18 00:15
PROVIDERS: ADMIT Internal Medicine; ATTEND Internal Medicine
DX: E13.10 Other specified diabetes mellitus with ketoacidosis without coma (principal); A41.9 Sepsis, unspecified organism; J69.0 Pneumonitis due to inhalation of food and vomit; N17.9 Acute kidney failure, unspecified; E87.5 Hyperkalemia; I10 Essential (primary) hypertension; Z79.899 Other long term (current) drug therapy; Z79.4 Long term (current) use of insulin; Z87.891 Personal history of nicotine dependence; Z91.14 Patient's other noncompliance with medication regimen
CPT/HCPCS: 36415; 36600; 71010; 71020; 80048; 80053; 80307; 81001; 82010; 82550; 82553; 82803; 82947; 82962; 83036; 83735; 84100; 84484; 85025; 87040; 87070; 87077; 87086; 87186; 87205; 87804; 93005; 93010; 99291; J0610; J0696; J1644; J1815; J1956; J3475; J3480; J3490; J7030; J7060; J7620; S0164

== ENCOUNTER → 2017-01-05 | Outpatient (CLI) | payer OTHER ==
[2017-01-05 16:15] LABS: ABSOLUTE BASOPHILS # (AUTO) 0.1 10^3/uL (0.0-0.2); ABSOLUTE EOSINOPHILS # (AUTO) 0.2 10^3/uL (0.0-0.6); ABSOLUTE LYMPHOCYTES (AUTO) 1.9 10^3/uL (0.5-4.7); ABSOLUTE MONOCYTES (AUTO) 0.6 10^3/uL (0.1-1.4); ABSOLUTE NEUT (AUTO) 3.5 10^3/uL (1.7-8.2); BASOPHILS % (AUTO) 0.9 % (0-2); EOSINOPHILS % (AUTO) 3.3 % (0-6); HEMATOCRIT 40.9 % (37.9-51.0); HEMOGLOBIN 14.2 g/dL (13.5-17.0); HGB HCT DIFFERENCE 1.7; LYMPHOCYTES % (AUTO) 30.2 % (13-45); MEAN CORPUSCULAR HEMOGLOBIN 33.1 pg (27.0-33.4); MEAN CORPUSCULAR HGB CONC 34.6 g/dL (32.0-36.0); MEAN CORPUSCULAR VOLUME 95 fl (80-97); RED BLOOD COUNT 4.29 10^6/uL (4.35-5.55); RED CELL DISTRIBUTION WIDTH 13.2 % (11.5-14.0); SEGMENTED NEUTROPHILS % (AUTO) 56.6 % (42-78); WHITE BLOOD COUNT 6.2 10^3/uL (4.0-10.5)
[2017-01-05 16:17] LABS: APPEARANCE,URINE CLEAR; BILIRUBIN,URINE NEGATIVE (NEGATIVE); GLUCOSE, URINE NEGATIVE (NEGATIVE); KETONES,URINE NEGATIVE (NEGATIVE); LEUKOCYTE ESTERASE,URINE NEGATIVE (NEGATIVE); NITRITE,URINE NEGATIVE (NEGATIVE); PROTEIN,URINE NEGATIVE (NEGATIVE); URINE SPECIFIC GRAVITY 1.004; UROBILINOGEN,URINE NEGATIVE mg/dL (<2.0)
[2017-01-05 16:34] LABS: ALANINE AMINOTRANSFERASE 23 U/L (21-72); ALBUMIN 4.3 g/dL (3.5-5.0); ALKALINE PHOSPHATASE 73 U/L (38-126); ANION GAP 10 (5-19); ASPARTATE AMINO TRANSFERASE 22 U/L (17-59); BILIRUBIN,DIRECT 0.3 mg/dL (0.0-0.4); BILIRUBIN,TOTAL 0.5 mg/dL (0.2-1.3); BLOOD UREA NITROGEN 8 mg/dL (7-20); CALCIUM 9.7 mg/dL (8.4-10.2); CARBON DIOXIDE 28 mmol/L (22-30); CHLORIDE 102 mmol/L (98-107); CHOLESTEROL 185.32 mg/dL (0-200); CREATININE RESULT 0.64 mg/dL (0.52-1.25); Direct HDL 51 mg/dL (>40); GLUCOSE 57 mg/dL (75-110); POTASSIUM 3.9 mmol/L (3.6-5.0); TOTAL PROTEIN 7.3 g/dL (6.3-8.2); TRIGLYCERIDES 138 mg/dL (<150)
[2017-01-05 16:45] LABS: DIRECT LDL 84 mg/dL (<100)
== END ==
LOC: CCC 15:18
DX: I10 Essential (primary) hypertension (principal); E78.4 Other hyperlipidemia; E11.40 Type 2 diabetes mellitus with diabetic neuropathy, unspecified
CPT/HCPCS: 36415; 80053; 80061; 81001; 84443; 85025

== ENCOUNTER → 2017-06-01 | Outpatient (CLI) | payer OTHER ==
--- NOTE | 2017-06-01 15:48 | RADIOLOGY REPORT (SQ) ---
EXAM DESCRIPTION: HAND LEFT 2 VIEWS COMPLETED DATE/TIME: 06/01/2017 3:13 pm REASON FOR STUDY: PAIN IN LEFT HAND M79.642 PAIN IN LEFT HAND COMPARISON: None. EXAM PARAMETERS: NUMBER OF VIEWS: Three views. TECHNIQUE: AP, lateral and oblique radiographic images acquired of the left hand. LIMITATIONS: None. FINDINGS: MINERALIZATION: Normal. BONES: No acute fracture or dislocation. No worrisome bone lesions. JOINTS: No effusions. SOFT TISSUES: No soft tissue swelling. No foreign body. OTHER: No other significant finding. IMPRESSION: NEGATIVE STUDY OF THE LEFT HAND. NO RADIOGRAPHIC EVIDENCE OF ACUTE INJURY. TECHNICAL DOCUMENTATION: JOB ID: [id number] [employer]- All Rights Reserved
== END ==
LOC: OD 14:48
DX: M79.642 Pain in left hand (principal)

== ENCOUNTER → 2017-06-01 | Outpatient (CLI) | payer OTHER ==
[2017-06-01 16:14] LABS: ABSOLUTE EOSINOPHILS # (AUTO) 0.1 10^3/uL (0.0-0.6); ABSOLUTE LYMPHOCYTES (AUTO) 1.5 10^3/uL (0.5-4.7); ABSOLUTE MONOCYTES (AUTO) 0.7 10^3/uL (0.1-1.4); ABSOLUTE NEUT (AUTO) 3.7 10^3/uL (1.7-8.2); BASOPHILS % (AUTO) 0.4 % (0-2); EOSINOPHILS % (AUTO) 2.2 % (0-6); HEMATOCRIT 42.4 % (37.9-51.0); HEMOGLOBIN 14.7 g/dL (13.5-17.0); LYMPHOCYTES % (AUTO) 24.5 % (13-45); MEAN CORPUSCULAR HEMOGLOBIN 33.1 pg (27.0-33.4); MEAN CORPUSCULAR HGB CONC 34.7 g/dL (32.0-36.0); MEAN CORPUSCULAR VOLUME 95 fl (80-97); MONOCYTES % (AUTO) 11.1 % (3-13); PLATELET COUNT 261 10^3/uL (150-450); RED BLOOD COUNT 4.44 10^6/uL (4.35-5.55); SEGMENTED NEUTROPHILS % (AUTO) 61.8 % (42-78); TOTAL CELLS COUNTED % (AUTO) 100 %
[2017-06-01 16:40] LABS: ALANINE AMINOTRANSFERASE 25 U/L (21-72); ALBUMIN 4.6 g/dL (3.5-5.0); ALKALINE PHOSPHATASE 77 U/L (38-126); ANION GAP 11 (5-19); ASPARTATE AMINO TRANSFERASE 24 U/L (17-59); BILIRUBIN,DIRECT 0.3 mg/dL (0.0-0.4); BILIRUBIN,TOTAL 0.5 mg/dL (0.2-1.3); BLOOD UREA NITROGEN 8 mg/dL (7-20); CALCIUM 9.6 mg/dL (8.4-10.2); CARBON DIOXIDE 30 mmol/L (22-30); CHLORIDE 101 mmol/L (98-107); CHOLESTEROL 191.05 mg/dL (0-200); GLUCOSE 68 mg/dL (75-110); POTASSIUM 3.7 mmol/L (3.6-5.0); SODIUM 142.1 mmol/L (137-145); TOTAL PROTEIN 7.4 g/dL (6.3-8.2); TRIGLYCERIDES 118 mg/dL (<150)
[2017-06-01 16:51] LABS: DIRECT LDL 84 mg/dL (<100)
== END ==
LOC: CCC 14:15
DX: E10.8 Type 1 diabetes mellitus with unspecified complications (principal)
CPT/HCPCS: 36415; 80053; 80061; 83036; 84443; 85025